=== PATIENT | male | born 1940 | race Caucasian/White ===

== ENCOUNTER 2019-06-07 20:52 | Emergency (ER) | payer MEDICARE, OTHER, SELFPAY ==
[2019-06-07 21:00] VITALS: BP 183/73; PULSE 96; RESP 15; TEMP 36.8; O2SAT 94; BMI 31.1
--- NOTE | 2019-06-07 21:11 | PC.NURSE ---
Patient with bladder scan of 55mL. Aware of need for urine specimen. Pt reports being unable to urinate at this time.
--- NOTE | 2019-06-07 21:30 | ED.MALEGU ---
HPI - Male Genitourinary General Chief complaint: Urogenital-Male Stated complaint: blood in urine,back hurting Time Seen by Provider: 06/07/19 21:00 Source: patient Mode of arrival: ambulatory Limitations: no limitations History of Present Illness HPI Narrative: Patient is a 78-year-old male who presents with hematuria. He says he was camping he stood up to go pee however urine and blood just started coming out. He has blood stains on his shorts. He denies any abdominal pain. He is not on any blood thinners or anti and platelet medication. This has never happened to him before. He does have bilateral total low back pain which he contributes to lifting and moving things frequently. He has no radiation of pain to his abdomen. He has not had any fever chills. Related Data Allergies Allergy/AdvReac Type Severity Reaction Status Date / Time Penicillins Allergy Verified 06/07/19 23:18 Review of Systems Review of Systems ROS Unobtainable: All systems reviewed & are unremarkable except as noted in HPI and below Constitutional Denies chills, Denies fever(s), Denies lethargy and Denies weakness Eyes Denies change in vision, Denies eye discharge, Denies irritation and Denies loss of vision ENT Ears, Nose, Mouth, and Throat: Denies change in voice, Denies neck pain and Denies sore throat Cardiovascular Denies chest pain, Denies irregular heart rhythm, Denies lightheadedness, Denies palpitations, Denies dyspnea, Denies dyspnea on exertion and Denies orthopnea Respiratory Denies cough, Denies dyspnea, Denies dyspnea on exertion and Denies wheezing Gastrointestinal Gastrointestinal: Denies abdominal pain, Denies change in bowel habits, Denies diarrhea, Denies nausea and Denies vomiting Genitourinary Reports as per HPI Musculoskeletal Denies neck pain Integumentary/Breasts Denies pruritus, Denies erythema, Denies rash and Denies wounds Neurologic Denies loss of vision and Denies weakness Endocrine Denies palpitations Allergic/Immunologic Denies wheezing [facility] Medical History Patient denies significant medical history (Acute) Social History Smoking Status: Former smoker Social History Smoking Status: Former smoker Comment: lives in [facility] Exam Initial Vital Signs Initial Vital Signs: Vital Signs Temperature 98.3 F 06/07/19 21:00 Pulse Rate 96 H 06/07/19 21:00 Respiratory Rate 15 06/07/19 21:00 Blood Pressure 183/73 H 06/07/19 21:00 Pulse Oximetry 94 06/07/19 21:00 GENERAL: Well-appearing, well-nourished and in no acute distress. HEENT: Head atraumatic,EOMI, pupils reactive, face symmetric, moist mucous membranes CARDIOVASCULAR: Regular rate and rhythm without murmurs, rubs or gallops. RESPIRATORY: Breath sounds equal bilaterally, no wheezes rales or rhonchi. ABDOMEN: Soft, nontender. Normoactive bowel sounds all 4 quadrants. No guarding or rebound. : No CVA tenderness EXTREMITIES: Normal range of motion, no clubbing or edema. Neurovascularly intact NEUROLOGICAL: Alert and oriented x4.Normal gait and speech. Cranial nerves II through XII grossly intact. SKIN: Warm, dry, no laceration, no petechiae, no rashes or lesions. Course Orders Ordered: ED Orders 06/07/19 21:20 Basic Metabolic Panel Stat Complete Blood Count AUTO DIFF Stat Partial Thromboplastin Time Stat Prothrombin Time INR Stat 06/07/19 21:40 Urinalysis and Microscopic Stat Discontinued Medications Sodium Chloride (Normal Saline 0.9%) 1,000 mls @ 1,000 mls/hr IV BOLUS ONE Stop: 06/07/19 22:12 Last Infusion: 06/07/19 23:15 Dose: 0 mls/hr Admin: 06/07/19 21:39 Dose: 1,000 mls/hr Vital Signs - 8 hr 06/07/19 21:00 06/07/19 23:15 06/08/19 00:30 Temperature 98.3 F 98.3 F Pulse Rate 96 H 75 80 Respiratory Rate 15 16 16 Blood Pressure 183/73 H Blood Pressure [Right Arm] 150/78 H 147/79 H Pulse Oximetry 94 98 98 06/08/19 01:00 Temperature Pulse Rate 74 Respiratory Rate 16 Blood Pressure Blood Pressure [Right Arm] 144/74 H Pulse Oximetry 99 MDM - Male Genitourinary Lab Data Attestation: I reviewed the patient's lab results. Result diagrams: 06/07/19 21:20 06/07/19 21:20 Lab Results 06/07/19 06/07/19 06/07/19 Range/Units 21:20 21:20 21:20 WBC 5.6 (4.5-11.0) X10^3/uL RBC 4.58 (4.5-5.9) X10^6/uL Hgb 12.8 L (13.5-17.5) g/dL Hct 37.9 L (41-53) % MCV 82.8 (80-100) fL MCH 27.8 (26-34) PG MCHC 33.6 (30-36) % RDW 14.1 (11.6-14.8) % Plt Count 233 (150-400) X10^3/uL Neut % (Auto) 58.3 (50-75) % Lymph % (Auto) 30.2 (25-40) % [place] % (Auto) 7.7 (3-14) % Eos % (Auto) 3.1 (2-4) % Baso % (Auto) 0.7 (0-2) % Neut # (Auto) 3300 (3962-6527) /uL Lymph # (Auto) 1700 (1396-1756) /uL [place] # (Auto) 400 (0-900) /uL Eos # (Auto) 200 (0-450) /uL Baso # (Auto) 0 (0-100) /uL PT 10.8 (10.1-12.7) SECONDS INR 0.9 (0.9-1.3) APTT 32 (26.4-36.2) SECONDS Sodium 140 (137-145) mmol/L Potassium 3.9 (3.4-5.1) mmol/L Chloride 107 (98-107) mmol/L Carbon Dioxide 26 (22-32) mmol/L BUN 32 H (9-20) mg/dL Creatinine 1.80 H (0.66-1.25) mg/dL Estimated GFR 36.9 L (>60) mL/min BUN/Creatinine Ratio 17.8 (6-22) Glucose 148 H (80-110) mg/dL Calcium 9.3 (8.4-10.2) mg/dL Urine Color Urine Appearance Urine pH (4.5-8.0) Ur Specific [place] (1.000-1.035) Urine Protein (Negative) Urine Glucose (UA) (Negative) g/dL Urine Ketones (NEGATIVE) Urine Occult Blood (Negative) Urine Nitrate (Negative) Urine Bilirubin (NEGATIVE) Urine Urobilinogen (0.2) E.U./dL Ur Leukocyte Esterase (NEGATIVE) Urine RBC (0-5/HPF) Urine WBC (0-5/HPF) Urine Bacteria (None) Ur Culture Indicated? 06/07/19 Range/Units 21:40 WBC (4.5-11.0) X10^3/uL RBC (4.5-5.9) X10^6/uL Hgb (13.5-17.5) g/dL Hct (41-53) % MCV (80-100) fL MCH (26-34) PG MCHC (30-36) % RDW (11.6-14.8) % Plt Count (150-400) X10^3/uL Neut % (Auto) (50-75) % Lymph % (Auto) (25-40) % [place] % (Auto) (3-14) % Eos % (Auto) (2-4) % Baso % (Auto) (0-2) % Neut # (Auto) (8321-2698) /uL Lymph # (Auto) (7439-8294) /uL [place] # (Auto) (0-900) /uL Eos # (Auto) (0-450) /uL Baso # (Auto) (0-100) /uL PT (10.1-12.7) SECONDS INR (0.9-1.3) APTT (26.4-36.2) SECONDS Sodium (137-145) mmol/L Potassium (3.4-5.1) mmol/L Chloride (98-107) mmol/L Carbon Dioxide (22-32) mmol/L BUN (9-20) mg/dL Creatinine (0.66-1.25) mg/dL Estimated GFR (>60) mL/min BUN/Creatinine Ratio (6-22) Glucose (80-110) mg/dL Calcium (8.4-10.2) mg/dL Urine Color Red Urine Appearance Cloudy Urine pH 7.0 (4.5-8.0) Ur Specific [place] 1.015 (1.000-1.035) Urine Protein 1+ H (Negative) Urine Glucose (UA) Trace H (Negative) g/dL Urine Ketones Negative (NEGATIVE) Urine Occult Blood 3+ H (Negative) Urine Nitrate Negative (Negative) Urine Bilirubin Negative (NEGATIVE) Urine Urobilinogen 0.2 (0.2) E.U./dL Ur Leukocyte Esterase Negative (NEGATIVE) Urine RBC 30-100/hpf H (0-5/HPF) Urine WBC 1-5/hpf (0-5/HPF) Urine Bacteria Few (2-10) H (None) Ur Culture Indicated? Cult not indicated MDM Narrative Medical decision making narrative: Urine initial show gross blood. Continues to have frequent emergency. 2nd urination only showed darkened urine, 3rd urination was pink tinged. He is urinating however decision to place catheter with irrigation due to initial gross blood in continue urinary frequency. The patient actually had 350 mL in his bladder. It was irrigated manually cleared very easily stayed cleared. Recommend follow-up, with PCP or Urology in his hometown. At this time Martin catheter will stay in place. He is taught how to use it. Discharge Plan Departure Patient Disposition: Home Clinical Impression: Acute retention of urine Discharge Date/Time: 06/08/19 00:56 Interventions: ED Discharge Assessment Last Done: 06/08/19 01:13 Instructions: How to Care for Your Martin Catheter -- Male, Blood in Urine Activity Restrictions/Additional Instructions: *You have been diagnosed with urinary retention and hematuria *What to do: At this time no sign of infection. Recommended that he keep Martin catheter in. It may stay in for as long as a month but you should have it removed in 1-2 weeks with her PCP *Continue to take medications as directed *Follow up with your primary care provider in 2-3 days *Return to ER if you should have Martin catheter not draining, gross blood, not able to see through the tube or any new, worsening or concerning symptoms
[2019-06-07 21:34] LABS: Add Manual Diff / Slide Review NO; Basophils Absolute Auto 0 /uL (0-100); Basophils Percent Auto 0.7 % (0-2); Eosinophils Absolute Auto 200 /uL (0-450); Eosinophils Percent Auto 3.1 % (2-4); Hematocrit 37.9 % (41-53); Hemoglobin 12.8 g/dL (13.5-17.5); Lymphocytes Absolute Auto 1700 /uL (1100-4500); Lymphocytes Percent Auto 30.2 % (25-40); Mean Corpuscular HGB Conc 33.6 % (30-36); Mean Corpuscular Hemoglobin 27.8 PG (26-34); Mean Corpuscular Volume 82.8 fL (80-100); Monocytes Absolute Auto 400 /uL (0-900); Monocytes Percent Auto 7.7 % (3-14); Neutrophils Absolute Auto 3300 /uL (1500-7000); Neutrophils Percent Auto 58.3 % (50-75); Platelet Count 233 X10^3/uL (150-400); Red Blood Cell Count 4.58 X10^6/uL (4.5-5.9); Red Cell Distribution Width 14.1 % (11.6-14.8); White Blood Cell Count 5.6 X10^3/uL (4.5-11.0)
[2019-06-07 21:35] LABS: INR 0.9 (0.9-1.3); Prothrombin Time 10.8 SECONDS (10.1-12.7)
[2019-06-07 21:37] LABS: PTT Partial Thromboplastin Tim 32 SECONDS (26.4-36.2)
[2019-06-07 21:38] LABS: BUN Creatinine Ratio 17.8 (6-22); Blood Urea Nitrogen 32 mg/dL (9-20); Calcium 9.3 mg/dL (8.4-10.2); Carbon Dioxide 26 mmol/L (22-32); Chloride 107 mmol/L (98-107); Estimated Glomerular Filt Rate 36.9 mL/min (>60); Glucose 148 mg/dL (80-110); HEMOLYSIS 31 (0-50); Potassium 3.9 mmol/L (3.4-5.1); Sodium 140 mmol/L (137-145)
[2019-06-07] MEDS: SODIUM CHLORIDE 0.9% 1,000 ML 1000 ML IV (21:39)
[2019-06-07 22:24] LABS: Bilirubin Urine UA NEGATIVE (NEGATIVE); Glucose Urine UA TRACE g/dL (Negative); Ketones Urine UA NEGATIVE (NEGATIVE); Leukocyte Esterase Urine UA NEGATIVE (NEGATIVE); Nitrite Urine UA NEGATIVE (Negative); Occult Blood Urine UA 3+ (Negative); Protein Urine UA 1+ (Negative); Specific Gravity Urine UA 1.015 (1.000-1.035); Urobilinogen Urine UA 0.2 E.U./dL (0.2)
[2019-06-07 22:25] LABS: Color Urine UA RED
[2019-06-07 22:26] LABS: Appearance Urine UA CLOUDY; RBC Urine 30-100/HPF (0-5/HPF); WBC Urine 1-5/HPF (0-5/HPF)
[2019-06-07 22:28] LABS: Bacteria Urine Few (2-10)
[2019-06-07 22:29] LABS: Culture Indicated Urine Cult Not Indicated
[2019-06-07 23:15] VITALS: BP 150/78; PULSE 75; RESP 16; O2SAT 98
[2019-06-08 00:30] VITALS: BP 147/79; PULSE 80; RESP 16; TEMP 36.8; O2SAT 98
[2019-06-08 01:00] VITALS: BP 144/74; PULSE 74; RESP 16; O2SAT 99
--- NOTE | 2019-06-08 01:07 | PC.NURSE ---
leg bag given and instructions to pt and on how to swap leg bag for regular sow bag for night and day use. Emphasis on keeping tip of catheter tubing clean d/t risk of infection. Patient verbalizes understanding and expresses comfort in being able to compete tasks of emptying catheter and exchanging tubes at home. pt to follow up with Urologist in [place] as that is where he is from.
--- NOTE | 2019-06-08 01:11 | PC.NURSE ---
After insertion of 20Fr 3 way sow catheter, 350 mL of blood tinged urine began flowing freely into catheter bag. Bladder irrigated with 250 mL of steril irrigation water with clear results obtained. No clots observed. Sow is draining freely pink tinged urine. Pt expresses relief of pain and urgency with catheter placement. Sterile technique used and tubing secured with securing device to right inner thigh. Urojet used prior to sow insertion.
== END 2019-06-08 00:56 | disposition home or self-care (01) ==
PROVIDERS: Emergency Provider Emergency Medicine
DX: R33.9 Retention of urine, unspecified (principal)
CPT/HCPCS: 36591; 51701; 51798; 80048; 81001; 85025; 85610; 85730; 96360; 96361; 99283; 99284

== ENCOUNTER 2019-06-09 09:17 | Emergency (ER) | payer MEDICARE, OTHER, SELFPAY ==
[2019-06-09 09:30] VITALS: BP 158/62; PULSE 76; RESP 16; TEMP 36.5; O2SAT 96; BMI 31.1
--- NOTE | 2019-06-09 10:08 | PC.NURSE ---
Patient seen on Saturday for urinary retention catheter placed. patient woke with leaking around tube and feels as though the sow is slipping out. Evaluated catheter. Patient balloon is a 30cc balloon, which only had 21cc in balloon upon evaluation. Refilled the Balloon with 30cc NS. Monitoring patient for proper urine output.
--- NOTE | 2019-06-09 10:33 | ED.MALEGU ---
HPI - Male Genitourinary General Chief complaint: Urogenital-Male Stated complaint: CATHETER WONT STAY IN Time Seen by Provider: 06/09/19 09:50 Source: patient and family Mode of arrival: ambulatory Limitations: no limitations History of Present Illness HPI Narrative: Patient comes emergency department complaining that his Martin catheter is leaking. He states that the catheter feels loose, and that urine is leaking around the tube. Patient had a catheter placed 2 days ago after experiencing some urinary retention and hematuria with clots. Patient states he has a follow-up appointment with his primary care physician and [facility] where he lives. Patient has been up here with his on their boat. He states he is returning to [place] today. Patient denies fevers or abdominal pain. He states he gets a spasm like pain when he feels the need to urinate, even with the catheter, but that this dissipates on the urination is done. Related Data Home Medications Medication Instructions Recorded Confirmed amlodipine 2.5 mg PO DAILY 06/09/19 06/09/19 atorvastatin 40 mg PO DAILY 06/09/19 06/09/19 fenofibrate nanocrystallized 145 mg PO DAILY 06/09/19 06/09/19 glyburide 2.5 mg PO BID 06/09/19 06/09/19 insulin glargine [Lantus Solostar 06/09/19 U-100 Insulin] losartan 100 mg PO DAILY 06/09/19 06/09/19 ranitidine HCl 150 mg PO DAILY 06/09/19 06/09/19 Allergies Allergy/AdvReac Type Severity Reaction Status Date / Time Penicillins Allergy Verified 06/07/19 23:18 Review of Systems Constitutional Denies chills, Denies fever(s), Denies lethargy and Denies weakness Eyes Denies change in vision, Denies eye discharge, Denies irritation and Denies loss of vision ENT Ears, Nose, Mouth, and Throat: Denies change in voice, Denies neck pain and Denies sore throat Cardiovascular Denies chest pain, Denies irregular heart rhythm, Denies lightheadedness, Denies palpitations, Denies dyspnea, Denies dyspnea on exertion and Denies orthopnea Respiratory Denies cough, Denies dyspnea, Denies dyspnea on exertion and Denies wheezing Gastrointestinal Gastrointestinal: Denies abdominal pain, Denies change in bowel habits, Denies diarrhea, Denies nausea and Denies vomiting Genitourinary Denies hematuria, Denies flank pain, Denies urinary incontinence and Denies urinary urgency Comments: Urinary retention Musculoskeletal Denies neck pain Integumentary/Breasts Denies pruritus, Denies erythema, Denies rash and Denies wounds Neurologic Denies confusion, Denies loss of vision and Denies weakness Psychiatric Denies anxiety, Denies confusion, Denies depression, Denies homicidal ideation and Denies suicidal ideation Endocrine Denies palpitations Hematologic/Lymphatic Denies easy bruising Allergic/Immunologic Denies wheezing [facility] Medical History (Updated 06/09/19 @ 10:35 by Prisca Andrea MD) Patient denies significant medical history (Acute) Surgical History (Updated 06/09/19 @ 10:35 by Prisca Andrea MD) No pertinent past surgical history (Acute) Social History Smoking Status: Former smoker Social History Smoking Status: Former smoker Exam Initial Vital Signs Initial Vital Signs: Vital Signs Temperature 97.7 F 06/09/19 09:30 Pulse Rate 76 06/09/19 09:30 Respiratory Rate 16 06/09/19 09:30 Blood Pressure 158/62 H 06/09/19 09:30 Pulse Oximetry 96 06/09/19 09:30 Const General: cooperative and well developed Nutritional Appearance: well nourished Orientation: alert, awake, oriented x3 and not confused [facility] Head: normocephalic and atraumatic Ears: external ears normal and TM's normal bilaterally Nose: external nose normal and No nasal discharge Face and sinus: sinuses nontender, face symmetric, no sinus tenderness and No dry mucous membranes Mouth: oral mucosae normal and moist mucous membranes Teeth and gingiva: dentition normal Throat: tonsils normal and uvula midline Eyes General: appearance normal, both eyes and all related structures Eyelids: eyelids normal Conjunctivae: conjunctivae normal Sclera: sclerae normal Pupils: PERRL EOM: EOM intact bilaterally Neck Neck: normal visual inspection, trachea midline, No lymphadenopathy, No midline deformity and No JVD Lymphatic: No lymphedema Chest Chest: normal inspection of the chest Resp Effort & Inspection: normal respiratory effort, able to speak in complete sentences, no respiratory distress and no use of accessory muscles Auscultation: clear to auscultation bilaterally, no rales, no rhonchi and no wheezes Cardio Rate: regular rate Rhythm: regular rhythm Heart Sounds: no click, no gallops, no murmurs and no rubs Pulses: normal peripheral pulses GI Inspection: non-distended Palpation: soft, no hepatosplenomegaly, No guarding, No pulsatile mass and No tender Auscultation: normal bowel sounds Other: Martin catheter in place, with no laxity after balloon adjustment by nurse. No leakage noted. About 70 cc of blood tinged urine noted in the patient's catheter bag. Back/Spine/Pelvis Back: No CVA tenderness Cervical Spine: cervical ROM normal and No pain with cervical ROM Thoracic/Lumbar Spine: thoracic and lumbar spine normal to inspection Skin General: no rashes or lesions noted, No jaundice and No petechiae Neuro General: alert, oriented x3, gait normal and no focal motor deficits Speech: speech normal Extrem General: full ROM, no clubbing, cyanosis or edema, no pedal edema and no calf tenderness Psych Appearance: well kempt Mental Status: mental status grossly normal Attitude: cooperative Thought Content: normal and suicidality Judgment: judgment good Course Course Narrative: At the time my evaluation, patient had already had a catheter evaluation by the nurse, and balloon had been found to be about 9 CC short of fluid. Nursing staff filled this up to the full 30 cc balloon required, and the catheter was found to be stable and without leakage around the tube. I have discussed home management of the catheter with the patient and his , as well as indications for follow-up. The patient has an appointment tomorrow, and should plan to keep this. We have discussed the usual indications for return. Vital Signs - 8 hr 06/09/19 09:30 Temperature 97.7 F Pulse Rate 76 Respiratory Rate 16 Blood Pressure 158/62 H Pulse Oximetry 96 MDM - Male Genitourinary Medical Records Attestation: I reviewed the patient's medical records. Discharge Plan Departure Patient Disposition: Home Clinical Impression: Acute retention of urine, Martin catheter in place Instructions: DI for Urinary Retention in Men Prescriptions: No Action atorvastatin 40 mg tablet 40 mg PO DAILY RF: 0 glyburide 2.5 mg tablet 2.5 mg PO BID RF: 0 amlodipine 2.5 mg tablet 2.5 mg PO DAILY RF: 0 ranitidine HCl 150 mg tablet 150 mg PO DAILY RF: 0 losartan 100 mg tablet 100 mg PO DAILY RF: 0 fenofibrate nanocrystallized 145 mg tablet 145 mg PO DAILY RF: 0 Lantus Solostar U-100 Insulin 100 unit/mL (3 mL) insulin pen RF: 0 Referrals: Neftali Oliveros MD [Primary Care Provider] -
[2019-06-09 10:49] VITALS: BP 148/57; PULSE 76; RESP 12; O2SAT 99
== END 2019-06-09 10:52 | disposition home or self-care (01) ==
PROVIDERS: Emergency Provider Emergency Medicine; PCP Internal Medicine
DX: R33.9 Retention of urine, unspecified (principal); Z96.0 Presence of urogenital implants
CPT/HCPCS: 99282